=== PATIENT | female | born 1990 | race Caucasian/White ===

== ENCOUNTER 2019-07-22 12:42 | Outpatient (CLI) | payer MEDICAID ==
[~2019-07-22] VITALS: Ht 152.4 cm; Wt 62.0 kg
[~2019-07-22 12:42] MED LIST: PNV11TAB PO
[2019-07-22 13:04] VITALS: Ht 152.4 cm; Wt 62.0 kg
[2019-07-22 13:08] VITALS: BP 115/54; PULSE 74; RESP 19
[2019-07-22] MEDS ORDERED: BETAMET NA PHOS/AC (6 MG/ML) 2 ML INJ SYG IM ONE (13:30)
== END 2019-07-22 15:25 | disposition left against medical advice (07) ==
LOC: L-D 12:42 → OBT 12:42
PROVIDERS: ATTEND Obstetrics & Gynecology
DX: O26.872 Cervical shortening, second trimester (principal); Z3A.23 23 weeks gestation of pregnancy
CPT/HCPCS: 96372; J0702; Z7500; G0463

== ENCOUNTER 2019-07-25 07:19 | Inpatient (IN) | payer MEDICAID ==
[~2019-07-25] VITALS: Ht 144.8 cm; Wt 60.7 kg
[2019-07-25 07:32] VITALS: Ht 144.8 cm; Wt 60.7 kg
[2019-07-25 07:33] VITALS: BP 110/61; PULSE 89; RESP 20
[2019-07-25] MEDS ORDERED: BETAMET NA PHOS/AC (6 MG/ML) 2 ML INJ SYG IM ONE (08:00)
[2019-07-25] MEDS ORDERED: LACTATED RINGER'S 1,000 ML IV SCH (08:10)
[2019-07-25] MEDS ORDERED: AMPICILLIN 2 GM/NS (PMX) 100 ML ONE (08:12)
[2019-07-25] MEDS ORDERED: MINERAL OIL LIGHT 10 ML VIAL TOP PRN (08:30)
[2019-07-25] MEDS ORDERED: CARBOPROST 250 MCG INJ IM PRN ×2 (08:30)
[2019-07-25] MEDS ORDERED: AMPICILLIN 2 GM/NS (PMX) 100 ML IV ONE (08:30)
[2019-07-25] MEDS ORDERED: NACL 0.9% 3 ML SYG IV SCH (08:30)
[2019-07-25] MEDS ORDERED: IBUPROFEN 600 MG TAB PO PRN (08:30)
[2019-07-25] MEDS ORDERED: MISOPROSTOL 200 MCG TAB PR PRN ×2 (08:30)
[2019-07-25] MEDS ORDERED: LANOLIN HPA 1 PKT TOP PRN (08:30)
[2019-07-25] MEDS ORDERED: OXYTOCIN 30 UNITS/LR 500 ML IV PRN ×2 (08:30)
[2019-07-25] MEDS ORDERED: OXYTOCIN 30 UNITS/LR 500 ML IV SCH ×3 (08:30)
[2019-07-25] MEDS ORDERED: LIDOCAINE 1% (MPF) 30 ML INJ INJ PRN (08:30)
[2019-07-25] MEDS ORDERED: METHYLERGONOVINE 0.2 MG INJ IM PRN ×2 (08:30)
[2019-07-25] MEDS ORDERED: KETOROLAC 30 MG INJ IM STA (08:31)
[2019-07-25] MEDS ORDERED: KETOROLAC 30 MG INJ IV STA (08:37)
[2019-07-25 10:00] VITALS: BP 98/53; PULSE 72; RESP 18
[2019-07-25] MEDS: IBUPROFEN 800 MG TAB PO SCH ×2 (11:56→17:59)
[2019-07-25] MEDS ORDERED: AMPICILLIN 1 GM/NS (PMX) 50 ML IV SCH (12:30)
[2019-07-25 15:30] VITALS: BP 92/57; PULSE 68; RESP 18
[2019-07-25 19:30] VITALS: BP 95/51; PULSE 73; RESP 18
[2019-07-26] MEDS: IBUPROFEN 800 MG TAB PO SCH ×4 (00:02→17:18)
[2019-07-26 03:14] VITALS: BP 105/66; PULSE 70; RESP 18
[2019-07-26 07:38] VITALS: BP 96/50; PULSE 72; RESP 18
[2019-07-26 16:11] VITALS: BP 90/52; PULSE 72; RESP 18
[2019-07-26 20:00] VITALS: BP 94/51; PULSE 68; RESP 16
[2019-07-27] MEDS: IBUPROFEN 800 MG TAB PO SCH ×3 (00:13→12:45)
[2019-07-27 06:00] VITALS: BP 90/60; PULSE 77; RESP 17
[2019-07-27 08:00] VITALS: BP 86/47; PULSE 67; RESP 18
[2019-07-27 09:40] VITALS: BP 87/51; PULSE 70; RESP 18
[2019-07-27 09:45] VITALS: BP 92/64; PULSE 70; RESP 18
[2019-07-27] MEDS: ASCORBIC ACID 500 MG TAB PO SCH ×2 (09:47→12:45)
[2019-07-27] MEDS: FERROUS SULFATE (EC) 325 MG TAB PO SCH ×2 (09:47→12:44)
[2019-07-27 09:48] VITALS: BP 93/66; PULSE 76; RESP 18
== END 2019-07-27 16:20 | disposition home or self-care (01) | DRG 806 ==
LOC: L-D 07:19 → OBT 07:19 → L-D 08:00 → PP1 10:09
PROVIDERS: ADMIT Obstetrics & Gynecology; ATTEND Obstetrics & Gynecology
PROC: 10E0XZZ Delivery of Products of Conception, External Approach (ICD-10-PCS; principal; 2019-07-25)
DX: O60.12X0 Preterm labor second trimester with preterm delivery second trimester, not applicable or unspecified (principal); D62 Acute posthemorrhagic anemia; Z37.0 Single live birth; Z3A.25 25 weeks gestation of pregnancy; O90.81 Anemia of the puerperium
CPT/HCPCS: 80307; 81001; 85025; 85610; 85730; 86592; 86850; 86900; 86901; 87340; 88307; G0463; J0290; J0702; J1885; J2210; J2590; J7120